=== PATIENT | female | born 1985 | race Caucasian/White ===

== ENCOUNTER 2016-12-14 06:49 | Emergency (ER) | payer OTHER ==
[2016-12-14 07:05] VITALS: BP 109/64; PULSE 70; TEMP 97.9; BMI 24.2
--- NOTE | 2016-12-14 07:24 | PDOC ---
History of Present Illness - General Chief Complaint: Pain Stated Complaint: PAIN/KIDNEY STONES Time Seen by Provider: 12/14/16 07:15 - History of Present Illness Initial Comments: 12/14/16 07:42 Ms. Flanagan is a 30 year old female with a significant past medical history of prior kidney stones who presents to the emergency department with a 1 week history of left flank pain radiating to her back. She says that she had spoken with her PCP (Isa) who sent her in yesterday for labs and proscribed antibiotics but that the pain was greater today so she came in for further care. The patient denies chest pain, shortness of breath, headache and dizziness. Denies fever, chills, nausea, vomit, diarrhea and constipation. Denies dysuria, frequency, urgency and hematuria. Allergies: NKDA Past surgical history: Denies Social history: Social EtOH PMD -Isa Past History - Past Medical History Allergies/Adverse Reactions: Allergies Allergy/AdvReac Type Severity Reaction Status Date / Time No Known Allergies Allergy Verified 12/14/16 07:02 Home Medications: Ambulatory Orders NK [No Known Home Medication] 12/14/16 Other medical history: Pt denies - Psycho/Social/Smoking Cessation Hx Suicidal Ideation: No Smoking History: Never smoked Information on smoking cessation initiated: No Hx Alcohol Use: No Drug/Substance Use Hx: No Substance Use Type: None Review of Systems - Review of Systems Comments:: 12/14/16 07:43 GENERAL/CONSTITUTIONAL: No fever or chills. No weakness. HEAD, EYES, EARS, NOSE AND THROAT: No change in vision. No ear pain or discharge. No sore throat. CARDIOVASCULAR: No chest pain or shortness of breath RESPIRATORY: No cough, wheezing, or hemoptysis. GASTROINTESTINAL: No nausea, vomiting, diarrhea or constipation. GENITOURINARY: +Left flank pain with recent cloudy urine. No dysuria, or frequency change. MUSCULOSKELETAL: No joint or muscle swelling or pain. No neck or back pain. SKIN: No rash NEUROLOGIC: No headache, vertigo, loss of consciousness, or change in strength/ sensation. ENDOCRINE: No increased thirst. No abnormal weight change HEMATOLOGIC/LYMPHATIC: No anemia, easy bleeding, or history of blood clots. ALLERGIC/IMMUNOLOGIC: No hives or skin allergy. *Physical Exam - Vital Signs Last Vital Signs Temp Pulse Resp BP Pulse Ox 97.9 F 70 20 109/64 100 12/14/16 07:02 12/14/16 07:02 12/14/16 07:02 12/14/16 07:02 12/14/16 07:02 - Physical Exam Comments: 12/14/16 07:43 GENERAL: Awake, alert, and fully oriented, in no acute distress HEAD: No signs of trauma, normocephalic, atraumatic EYES: PERRLA, EOMI, sclera anicteric, conjunctiva clear ENT: Auricles normal inspection, hearing grossly normal, nares patent, oropharynx clear without exudates. Moist mucosa NECK: Normal ROM, supple, no lymphadenopathy, JVD, or masses LUNGS: No distress, speaks full sentences, clear to auscultation bilaterally HEART: Regular rate and rhythm, normal S1 and S2, no murmurs, rubs or gallops, peripheral pulses normal and equal bilaterally. ABDOMEN: +Tender to palpation in LLQuadrant and midline. Soft, normoactive bowel sounds. No guarding, no rebound. No masses EXTREMITIES: Normal inspection, Normal range of motion, no edema. No clubbing or cyanosis. NEUROLOGICAL: Cranial nerves II through XII grossly intact. Normal speech, normal gait, no focal sensorimotor deficits SKIN: Warm, Dry, normal turgor, no rashes or lesions noted. ED Treatment Course - LABORATORY CBC & Chemistry Diagram: 12/14/16 08:14 12/14/16 08:14 Medical Decision Making - Medical Decision Making 12/14/16 07:46 Ms. Flanagan presents with a 1 week history of pain that she says is similar in character to her previous kidney stones. She presents as the pain was too severe for her to go to work. Ordered f/u UA, labs, and toradol for pain control. 12/14/16 10:38 US negative for stone or kidney pathology - UA positive for blood and leukocyte esterase. Suspect UTI is cause of pain. Spiral CT to confirm no other pathology , will d/c to home if negative. CT negative, read below. Will send home on previously prescribed ciprofloxacin. Also counceled patient on dietary changes for constipation. IMPRESSION: There is no evidence of hydroureteronephrosis, renal or ureteral stone, bilaterally. Empty urinary bladder limiting its evaluation. There is no evidence of small bowel obstruction. Moderate amount of fecal residue mainly in the distal sigmoid colon, rule out constipation Laboratory Results - last 24 hr 12/14/16 12/14/16 12/14/16 08:14 08:14 08:14 WBC 8.9 RBC 4.95 Hgb 8.5 L Hct 28.0 L MCV 56.5 L MCH 17.2 L MCHC 30.4 L RDW 21.4 H Plt Count 178 D MPV 9.0 Neutrophils % 74.5 Lymphocytes % 17.5 D Monocytes % 6.2 Eosinophils % 1.6 Basophils % 0.2 Sodium 137 Potassium 3.5 Chloride 104 Carbon Dioxide 27 Anion Gap 6 L BUN 18 Creatinine 0.7 Creat Clearance w eGFR > 60 Random Glucose 73 L Calcium 8.8 Total Bilirubin 0.4 D AST 9 L ALT 14 Alkaline Phosphatase 59 Total Protein 7.6 Albumin 3.7 Urine Color Straw Urine Appearance Clear Urine pH 5.0 Urine Protein Negative Urine Glucose (UA) Negative Urine Ketones Negative Urine Blood 1+ H Urine Nitrite Negative Urine Bilirubin Negative Urine Urobilinogen Negative Ur Leukocyte Esterase 2+ H Urine RBC 1 Urine WBC 6 Ur Epithelial Cells Rare Urine Bacteria Rare Urine Mucus Rare Urine HCG, Qual Negative 12/14/16 11:48 *DC/Admit/Observation/Transfer Diagnosis at time of Disposition: Urinary tract infection Qualifiers: Urinary tract infection type: site unspecified Hematuria presence: without hematuria Qualified Code(s): N39.0 - Urinary tract infection, site not specified - Discharge Dispostion Disposition: HOME Condition at time of disposition: Stable - Patient Instructions Printed Discharge Instructions: DI for Urinary Tract Infection (UTI), DI for Constipation Additional Instructions: Please return to ER if any increase in pain, fever, or other concerning symptoms. - Attestations Physician Attestion: 12/14/16 11:51 I, Dr. Kaleb Bey, attest that this document has been prepared under my direction and personally reviewed by me in its entirety. I further attest, that it accurately reflects all work, treatment, procedures and medical decision -making performed by me.
[2016-12-14] MEDS ORDERED: KETOROLAC TROMETHAMINE 30 MG/1 ML VIAL IVPUSH ONE (07:51)
--- NOTE | 2016-12-14 07:52 | PDOC ---
Attending Attestation - Resident Resident Name: Kaleb Bey - ED Attending Attestation I have performed the following: I have examined & evaluated the patient, The case was reviewed & discussed with the resident, I agree w/resident's findings & plan, Exceptions are as noted - HPI HPI: 12/14/16 09:55 30y F with no significant pmhx presents with several weeks of intermittent L sided flank pain associated with vomiting thi smorning w/o fver/chills. pt endorses mild dysuria. GENERAL: The patient is awake, alert, and fully oriented, Nontoxic - in no acute distress. HEAD: Normocephalic, atraumatic. EYES: extraocular movements intact, sclera anicteric, conjunctiva clear. ENT: Normal voice, Moist mucous membranes. NECK: Normal range of motion, supple LUNGS: Breath sounds equal, clear to auscultation bilaterally. No wheezes, no rhonchi, no rales. HEART: Regular rate and rhythm, normal S1 and S2 without murmur, rub or gallop. ABDOMEN: +mild L sided CVA tenderness EXTREMITIES: Normal range of motion, no edema. No clubbing or cyanosis. No cords, erythema, or tenderness. NEUROLOGICAL: No facial assymetry, Normal speech, PSYCH: Normal mood, normal affect. SKIN: Warm, Dry, normal turgor, suspect uti vs kidney stones UA shows +blood, +2LE will obtain CT to r/o infected stone [t on levaquin from PMD filled yesterday
[2016-12-14] MEDS ORDERED: KETOROLAC TROMETHAMINE 30 MG/1 ML VIAL ONE (07:54)
[2016-12-14 08:23] LABS: BASOPHIL 0.2 % (0-2.0); EOSINOPHIL 1.6 % (0-4.5); MCHC 30.4 g/dl (32.0-36.0); MEAN CELL VOLUME 56.5 fl (80-96); NEUTROPHILS 74.5 % (42.8-82.8); PLATELET COUNT 178 K/MM3 (134-434); RDW 21.4 % (11.6-15.6); WHITE BLOOD COUNT 8.9 K/mm3 (4.0-10.0)
[2016-12-14 08:25] LABS: MCH 17.2 pg (25.7-33.7)
[2016-12-14 08:29] LABS: URINE APPEARANCE CLEAR; URINE BILIRUBIN NEGATIVE (NEGATIVE); URINE BLOOD 1+ (NEGATIVE); URINE COLOR STRAW; URINE GLUCOSE (UA) NEGATIVE (NEGATIVE); URINE KETONE NEGATIVE (NEGATIVE); URINE NITRITE NEGATIVE (NEGATIVE); URINE PROTEIN NEGATIVE (NEGATIVE); URINE UROBILINOGEN NEGATIVE mg/dL (0.2-1.0)
[2016-12-14 08:32] LABS: URINE LEUK ESTERASE 2+ (NEGATIVE)
[2016-12-14 08:41] LABS: URINE BACTERIA RARE /hpf (NONE SEEN); URINE MUCUS RARE; URINE RBC 1 /hpf (0-3); URINE WBC 6 /hpf (3-5)
[2016-12-14 08:56] LABS: ALBUMIN 3.7 g/dl (3.4-5.0); ANION GAP 6 (8-16); BILIRUBIN,TOTAL 0.4 mg/dL (0.2-1.0); CALCIUM 8.8 mg/dL (8.5-10.1); CO2 27 mmol/L (21-32); GLUCOSE,RANDOM 73 mg/dL (74-106); SGOT/AST 9 U/L (15-37); SGPT/ALT 14 U/L (12-78); TOT PROT 7.6 g/dl (6.4-8.2)
[2016-12-14 08:58] LABS: ALK PHOS 59 U/L (45-117); CREATININE 0.7 mg/dL (0.55-1.02)
== END 2016-12-14 11:59 | disposition home or self-care (01) ==
LOC: JER 06:49
PROC: 3E033NZ Introduction of Analgesics, Hypnotics, Sedatives into Peripheral Vein, Percutaneous Approach (ICD-10-PCS; principal; 2016-12-14)
DX: N39.0 Urinary tract infection, site not specified (principal); Z87.442 Personal history of urinary calculi
CPT/HCPCS: 36415; 74176; 76775-TC; 80053; 81003; 81015; 84703; 85025; 96374; 99282-25

== ENCOUNTER 2017-01-23 09:17 | Day surgery (SDC) | payer OTHER ==
[2017-01-21 11:51] VITALS: BMI 21.6
[2017-01-23] MEDS ORDERED: ACETAMINOPHEN 325 MG TABLET (FP) PO PRN (10:52)
[2017-01-23] MEDS ORDERED: IBUPROFEN 800 MG/8 ML IJ IVPB PRN (10:52)
--- NOTE | 2017-01-23 10:52 | HP ---
History & Physical Update - History History: No Change - Physical Physical: No Change - Assessment Assessment: No Change - Plan Plan: No Change (AUB 2/2 polyps, for hysteroscopy, D&C, polypectomy)
[2017-01-23] MEDS ORDERED: LACTATED RINGERS SOLUTION 1,000 ML IV SCH (11:00)
[2017-01-23] MEDS ORDERED: MIDAZOLAM HCL 2 MG/2 ML SINGLE DOSE VIAL ONE ×2 (11:41)
[2017-01-23] MEDS ORDERED: ONDANSETRON 4 MG/2 ML VIAL IVPUSH PRN (11:43)
[2017-01-23] MEDS ORDERED: ACETAMINOPHEN 325 MG TABLET (FP) ONE (14:18)
[2017-01-23] MEDS ORDERED: ACETAMINOPHEN 325 MG TABLET (FP) PO ONE (14:25)
[2017-01-23 14:57] VITALS: TEMP 98.9
[2017-01-23 15:36] VITALS: BP 111/64; PULSE 73
[2017-01-24] MEDS ORDERED: MULTIVITAMINS (DAILY MVI) TABLET (FP) PO SCH (10:00)
--- NOTE | 2017-01-24 11:22 | PATH ---
Surgical Pathology Report Patient Name: NARA LOPEZ [facility]. Rec. #: [id number] /Age/Gender: 1985 (Age: 31) / F Account: [id number] Location: [facility] SURGICAL Taken: 01/23/2017 Received: 01/23/2017 Reported: 01/24/2017 Physicians: Radha Daugherty M.D. Specimen(s) Received ENDOMETRIAL CURETTINGS Clinical History Endometrial polyp Final Diagnosis ENDOMETRIUM, CURETTING: ENDOMETRIUM WITH STROMAL AND GLANDULAR BREAKDOWN, ALONG WITH PORTIONS OF BENIGN ENDOMETRIAL POLYP. BENIGN CERVICAL TISSUE PRESENT. NO ENDOMETRIAL HYPERPLASIA OR CARCINOMA IDENTIFIED. Electronically Signed Gary Keller M.D. Gross Description Received in formalin labeled "endometrial curettings," is a 2.3 x 2.2 x 0.3 cm aggregate of gan red soft tissue fragments. The formalin is filtered and the specimen is entirely submitted in one cassette. /01/23/201701/23/2017
--- NOTE | 2017-01-30 10:28 | OP ---
Operative Note - Note: Operative Date: 01/23/17 Pre-Operative Diagnosis: AUB, endometrial polyp Operation: hysteroscopy resection if endometrial polyp Implants: polypoid endometrial tissue anteriorly Surgeon: Radha Daugherty Anesthesiologist/CHUTE TAPPER: Brayden Evans Anesthesia: MAC Estimated Blood Loss (mls): 10 Operative Report Dictated: Yes
--- NOTE | 2017-01-30 12:54 | OP ---
DATE OF OPERATION: 01/23/2017 PREOPERATIVE DIAGNOSIS: Abnormal uterine bleeding and endometrial polyp. POSTOPERATIVE DIAGNOSIS: Abnormal uterine bleeding and endometrial polyp. PROCEDURE: hysteroscopy, dilation and curettage, and polypectomy. SURGEON: Radha Daugherty DO PLUGGING MACHINE OPERATOR: None. ANESTHESIA: LMA by Brayden Evans ESTIMATED BLOOD LOSS: 10 mL. SPECIMENS: Included endometrial curettings and endometrial polyp. COMPLICATIONS: None. Instrument count correct at the end of the case. DISPOSITION: Stable to PACU. BRIEF HISTORY AND PROCEDURE: The patient is a 31-year-old female who was been seen in the office with complaints of abnormal uterine bleeding. Upon ultrasound findings was noted to have an endometrial polyp. The patient was consented on her options and elected to undergo a hysteroscopy, dilation and curettage, and polypectomy. DESCRIPTION OF PROCEDURE: The patient was admitted to [facility] on January 23, 2017. Consents for the procedure, which were signed in the office were reconfirmed. The patient was then taken back to the operating room and placed in the dorsal lithotomy position and given anesthesia by LMA. She was then prepped and draped in the usual sterile fashion. A hard time-out was performed. A speculum was placed inside the vagina. The cervix was grasped with a tenaculum. The cervix was dilated to accommodate a diagnostic hysteroscope, which was advanced to the fundus. Dense polypoid tissue was noted on the anterior and posterior portions of the uterus as well as the lower uterine segment. No discrete polyps or fibroids were appreciated. Next, a sharp curette and suction dilation and curettage was performed to remove the contents of the endometrial cavity. Upon re-examination inside the uterus, no uterine perforation or trauma was appreciated. All of the polypoid tissue appeared to have been removed. All instruments were removed from the vagina cavity. Counts were reported to be correct. Tenaculum was released from the anterior lip of the cervix. The tenaculum sites were noted to be hemostatic. The patient was awoken from anesthesia and tolerated the procedure in stable condition in the PACU after procedure. RADHA DAUGHERTY DO /[id number]
== END 2017-01-23 15:39 | disposition home or self-care (01) ==
LOC: JASU-SURG 09:17
PROVIDERS: ATTEND Obstetrics & Gynecology
PROC: 0UB98ZX Excision of Uterus, Via Natural or Artificial Opening Endoscopic, Diagnostic (ICD-10-PCS; principal; 2017-01-23 11:00)
PROC: 0UDB8ZX Extraction of Endometrium, Via Natural or Artificial Opening Endoscopic, Diagnostic (ICD-10-PCS; 2017-01-23 11:00)
DX: N93.9 Abnormal uterine and vaginal bleeding, unspecified (principal); N84.0 Polyp of corpus uteri
CPT/HCPCS: 84703; 88305-TC; 94760

== ENCOUNTER 2017-10-22 10:00 | Inpatient (IN) | payer OTHER ==
[2017-10-27] MEDS ORDERED: CITRIC ACID/SODIUM CITRATE 30 ML UNIT-DOSE CUP PO ONE (07:20)
[2017-10-27] MEDS ORDERED: ELECTROLYTE-148 SOLN 1,000 ML IV ONE (07:20)
[2017-10-27] MEDS ORDERED: ONDANSETRON 4 MG/2 ML VIAL IVPUSH PRN (07:54)
[2017-10-27] MEDS ORDERED: ELECTROLYTE-148 SOLN 1,000 ML IV SCH (08:20)
[2017-10-27 08:21] VITALS: BMI 29.6
[2017-10-27] MEDS ORDERED: TUBERCULIN PPD 5 TU/0.1ML SYRINGE (IN PATIENT USE ONLY) ID ONE (09:00)
--- NOTE | 2017-10-27 10:24 | HP ---
Past Medical History - Admission Chief Complaint: Here for repeat delivery History Source: Patient, Medical Record Limitations to Obtaining History: No Limitations - Past Medical History Gastrointestinal: Yes: Constipation Reproductive: No: Fibroids, PID ...: 2 ...Para: 1 ...Term: 1 ...: 0 ...Spon : 0 ...Induced : 0 ...Multiple Gestation: 0 ...LMP: 01/20/17 ... Weeks Gestation by Dates: 40.0 ...EDC by Dates: 10/27/17 ...EDC by Sono: 11/03/17 Infectious Disease: No: HIV, MRSA, STD's Psych: No: Bipolar, Depression - Past Surgical History Past Surgical History: Yes: None, Hx Myomectomy: No Hx Transabdominal Cerclage: No - Smoking History Smoking history: Never smoked Have you smoked in the past 12 months: No - Alcohol/Substance Use Hx Alcohol Use: No - Social History Usual Living Arrangement: Yes: With Spouse ADL: Independent History of Recent Travel: No Home Medications - Allergies Allergies/Adverse Reactions: Allergies Allergy/AdvReac Type Severity Reaction Status Date / Time tramadol AdvReac Severe Vomiting Verified 10/27/17 08:26 - Home Medications Home Medications: Ambulatory Orders Metoclopramide HCl [Reglan] 1 tab PO DAILY 10/27/17 Vitamins (Sjr) - 1 tab PO DAILY 10/27/17 Review of Systems - Review of Systems Constitutional: reports: No Symptoms Eyes: reports: No Symptoms HENT: reports: No Symptoms Neck: reports: No Symptoms Cardiovascular: reports: No Symptoms Respiratory: reports: No Symptoms Gastrointestinal: reports: No Symptoms Genitourinary: reports: No Symptoms Breasts: reports: No Symptoms Reported Musculoskeletal: reports: No Symptoms Integumentary: reports: No Symptoms Neurological: reports: No Symptoms Endocrine: reports: No Symptoms Hematology/Lymphatic: reports: No Symptoms Psychiatric: reports: No Symptoms Physical Exam - Maternity Vital Signs: Vital Signs Temperature 98.2 F 10/27/17 07:20 Pulse Rate 79 10/27/17 07:20 Respiratory Rate 17 10/27/17 07:20 Blood Pressure 119/77 10/27/17 07:20 O2 Sat by Pulse Oximetry (%) Constitutional: Yes: Well Nourished, No Distress, Calm Eyes: Yes: Conjunctiva Clear, EOM Intact HENT: Yes: Atraumatic, Normocephalic Neck: Yes: WNL Cardiovascular: Yes: WNL Lungs: Clear to auscultation - Abdominal Exam/OB Fundal Height: 40 Number of Fetuses: Single Presentation: Vertex Monitor Mode: External Category: I Accelerations: Uniform Decelerations: None - Vaginal Exam/OB Vaginal Bleediing: No Hemorrhage Risk Assessment - Risk Factors Medium Risk Factors: Yes: Prior , uterine surgery,or multiple laparotomies High Risk Factors: Yes: None Risk Score: 1 Risk Level: Medium Risk Problem List - Problems (1) History of delivery Code(s): Z98.891 - HISTORY OF UTERINE SCAR FROM PREVIOUS SURGERY Assessment/Plan 31 y/o with SIUP at 39 weeks by dates for scheduled repeat c section AFVSS FHTS cat 1 for repeat c section, NPO, [facility] anesthesia and nursery aware
[2017-10-27] MEDS ORDERED: OXYTOCIN 20 UNITS in 0.9% NS 20 UNIT/1,000 ML INFUS.BAG IV ONE ×2 (10:59→14:44)
[2017-10-27] MEDS ORDERED: morphine SULFATE/Preservative Free 0.5 MG/ML (1cc Syringe) ONE (12:13)
[2017-10-27] MEDS ORDERED: ceFAZolin SODIUM 1 GM VIAL ONE (12:13)
[2017-10-27] MEDS ORDERED: BUPIVACAINE 0.75% IN DEXTROSE/PF 2ML AMPULE NR ONE (12:16)
[2017-10-27] MEDS ORDERED: OXYTOCIN 10 UNITS/ML VIAL ONE (13:01)
[2017-10-27] MEDS ORDERED: oxyCODONE HCL 5 MG TABLET PO PRN (13:20)
--- NOTE | 2017-10-27 13:20 | OP ---
Operative Note - Note: Operative Date: 10/27/17 Pre-Operative Diagnosis: prior delivery, declined TOLAC Operation: repeat low transverse delivery Post-Operative Diagnosis: Same as Pre-op Surgeon: Radha Daugherty [employer] Serviceperson: Junito Patel Anesthesiologist/INTEGRATION CONSULTANT: Yoandy Engle Anesthesia: Spinal Specimens Removed: placenta Estimated Blood Loss (mls): 600 Operative Report Dictated: Yes
[2017-10-27] MEDS ORDERED: IBUPROFEN 800 MG/8 ML IJ IVPB ONE (13:38)
[2017-10-27 13:40] LABS: ARTERIAL BLOOD GAS BASE EXCESS -1.4 meq/l (-2-2); ARTERIAL BLOOD GAS PCO2 51.7 mmHg (35-45); ARTERIAL BLOOD GAS pH 7.31 (7.35-7.45)
[2017-10-27 13:48] LABS: ARTERIAL BLOOD GAS PO2 17.8 mmHg (80-100)
[2017-10-27 13:49] LABS: VENOUS PC02 43.6 mmHg (38-52); VENOUS PH 7.36 (7.32-7.42); VENOUS PO2 36.2 mmHg (28-48)
[2017-10-27] MEDS: IBUPROFEN 800 MG/8 ML IJ IVPB PRN (13:50)
[2017-10-27] MEDS ORDERED: METHYLERGONOVINE MALEATE 0.2 MG/1 ML AMP IM PRN (13:53)
[2017-10-27] MEDS: OXYTOCIN 20 UNITS in 0.9% NS 20 UNIT/1,000 ML INFUS.BAG IV SCH (14:45)
--- NOTE | 2017-10-27 19:24 | OP ---
DATE OF OPERATION: 10/27/2017 PREOPERATIVE DIAGNOSIS: Single intrauterine at 39 weeks, prior delivery, declined trial of labor after delivery. POSTOPERATIVE DIAGNOSIS: Single intrauterine at 39 weeks, prior delivery, declined trial of labor after delivery. PROCEDURE: Repeat low transverse section. SURGEON: Radha Daugherty DO DIRECTOR CARDIOLOGY: HERBIE Britton ANESTHESIA: Spinal by Yoandy Engle MD. ESTIMATED BLOOD LOSS: 600 mL COMPLICATIONS: None. DISPOSITION: Stable to PACU. COUNTS: Sponge, needle, and instrument count correct. SPECIMENS REMOVED: Placenta. BRIEF HISTORY AND PROCEDURE: Patient is a 31-year-old, G2, P1 female with a history of a prior delivery in 2011, who presents today for a scheduled repeat delivery. The patient was admitted to [facility] on October 27, 2017. At which point, consents for the procedure were signed. Patient was taken back to the operating room where she was given spinal anesthesia and placed in the dorsal supine position. She was prepped and draped in the usual sterile fashion, and a hard timeout was performed. A Pfannenstiel skin incision was created in the skin with a scalpel and carried to the underlying layer of rectus fascia with the scalpel as well as with the Bovie. The fascia was incised on either side of the midline, and the fascial incision was carried in a superolateral direction sharply. The fascia was tented upward and dissected off the underlying layer of rectus muscle sharply. The musculature was identified. Midline was noted, and the muscles laterally. The peritoneum was then incised, and a bladder blade was inserted. The peritoneum was carefully dissected to allow for adequate room for delivery. A transverse incision was created in the lower uterine segment, which was extended in a superolateral direction bluntly. Infant was then delivered from the left occiput transverse position without difficulty. Posterior and anterior shoulders delivered with ease, along with the remainder of the . The was then taken over to the warmer to be assessed by the neonatology staff, who was present for the entire delivery. The placenta was then delivered with a 3-vessel cord and infant. The uterus was exteriorized from the abdomen, inspected, and cleared of all amniotic membranes and debris with a dry lap sponge. The hysterotomy was reapproximated in a double-layer closure, first using 1 Vicryl in a running locked fashion, second layer using 0 Biosyn in a running locked fashion. Excellent hemostasis was achieved. The posterior cul-de-sac was suctioned. Tubes and ovaries were noted to be normal. The uterus was placed back into the abdomen. Bilateral gutters were inspected and cleared of all debris. The hysterotomy was noted to have 2 areas of bleeding, and 2 figure-of-8 sutures were placed with 0 Biosyn to achieve hemostasis. Next, the peritoneum was reapproximated with a 2-0 chromic in a running fashion. The musculature was reapproximated in 2 interrupted sutures. The fascia was reapproximated using 1 Vicryl in a running fashion. Subcutaneous tissue was irrigated and reapproximated using 1 Vicryl in a running fashion, and a subcuticular stitch was placed into the skin, along with Steri-Strips on top. The patient tolerated the procedure well, recovering in stable condition in the PACU at the time of this dictation. Sponge, needle, and instrument count was reported to be correct. RADHA DAUGHERTY DO /[id number]
[2017-10-27] MEDS ORDERED: SENNOSIDES/DOCUSATE COMBO (SENNA PLUS) TABLET (UD) PO PRN (22:00)
[2017-10-28] MEDS: IBUPROFEN 800 MG/8 ML IJ IVPB PRN (06:07)
[2017-10-28 08:28] LABS: BASO % 0.2 % (0-2.0); EOS % 0.6 % (0-4.5); HEMATOCRIT 32.7 % (32.4-45.2); HEMOGLOBIN 10.4 GM/dL (10.7-15.3); LYMPH % 9.4 % (8-40); MCH 21.3 pg (25.7-33.7); MCHC 31.8 g/dl (32.0-36.0); MEAN PLT VOLUME 9.6 fl (7.5-11.1); MONO % 5.5 % (3.8-10.2); NEUT % 84.3 % (42.8-82.8); PLATELET COUNT 170 K/MM3 (134-434); RBC 4.87 M/mm3 (3.60-5.2); RDW 17.4 % (11.6-15.6); WHITE BLOOD COUNT 15.3 K/mm3 (4.0-10.0)
--- NOTE | 2017-10-28 10:37 | PN ---
Post Progress Note - Subjective Subjective: Pt seen/evaluated and doing well. Pain controlled. Tolerating diet (clears), passing some flatus. Kaur catheter removed, pt admits to voiding. Ambulating. VB minimal per nursing staff. Type of Delivery: Repeat C/S Vital Signs: Vital Signs Temperature 98.0 F 10/28/17 09:30 Pulse Rate 74 10/28/17 09:30 Respiratory Rate 20 10/28/17 09:30 Blood Pressure 120/72 10/28/17 09:30 O2 Sat by Pulse Oximetry (%) 100 10/27/17 14:25 Breast Exam: Yes: Soft Uterus: Yes: Fundus Firm, Fundus below umbilicus Incision: Yes: Dressing dry and intact Abdomen/GI: Yes: Abdomen soft, Tender (appropriate post surgical tenderness), Passing flatus, Tolerating PO. No: Abdominal Distention Lochia, amount: Small Perineum: Yes: Intact Activity: Ambulating - Labs Labs: CBC WBC 15.3 K/mm3 (4.0-10.0) H D 10/28/17 08:02 RBC 4.87 M/mm3 (3.60-5.2) 10/28/17 08:02 Hgb 10.4 GM/dL (10.7-15.3) L 10/28/17 08:02 Hct 32.7 % (32.4-45.2) 10/28/17 08:02 MCV 67.0 fl (80-96) L 10/28/17 08:02 MCH 21.3 pg (25.7-33.7) L 10/28/17 08:02 MCHC 31.8 g/dl (32.0-36.0) L 10/28/17 08:02 RDW 17.4 % (11.6-15.6) H 10/28/17 08:02 Plt Count 170 K/MM3 (134-434) 10/28/17 08:02 MPV 9.6 fl (7.5-11.1) 10/28/17 08:02 Absolute Neuts (auto) 12.9 # 10/28/17 08:02 Neutrophils % 84.3 % (42.8-82.8) H 10/28/17 08:02 Lymphocytes % 9.4 % (8-40) D 10/28/17 08:02 Monocytes % 5.5 % (3.8-10.2) 10/28/17 08:02 Eosinophils % 0.6 % (0-4.5) 10/28/17 08:02 Basophils % 0.2 % (0-2.0) 10/28/17 08:02 Nucleated RBC % 0 % (0-0) 10/28/17 08:02 Problem List - Problems (1) History of delivery Code(s): Z98.891 - HISTORY OF UTERINE SCAR FROM PREVIOUS SURGERY (2) delivery delivered Code(s): O82 - ENCOUNTER FOR DELIVERY WITHOUT INDICATION Assessment/Plan 31 y/o POD #1 s/p repeat delivery AFVSS HGb 10.4 regular diet today PO pain meds encourage ambulation routine care
[2017-10-28] MEDS: SIMETHICONE 80 MG TAB.CHEW (FP) PO PRN ×2 (10:59→17:20)
[2017-10-28] MEDS: oxyCODONE HCL 5 MG TABLET PO PRN ×2 (10:59→17:20)
[2017-10-28 11:13] LABS: ANISOCYTOSIS 2+; MACROCYTOSIS 0; PLATELET ESTIMATE NORMAL
--- NOTE | 2017-10-28 11:53 | PN ---
Progress Note (short form) - Note Progress Note: Anesthesia postop note 31y/o F s/p spinal anesthesia/ duramorph for secton POD#1, vss, aaox3, ambulating, pain fairly well controlled. No anesthesia complications.
[2017-10-28] MEDS ORDERED: BISACODYL 10 MG SUPP.RECT RC PRN (13:20)
[2017-10-28] MEDS: OXYTOCIN 20 UNITS in 0.9% NS 20 UNIT/1,000 ML INFUS.BAG IV SCH (14:26)
[2017-10-28] MEDS: IBUPROFEN 600 MG TABLET (FP) PO PRN ×2 (14:33→23:04)
[2017-10-29] MEDS: IBUPROFEN 600 MG TABLET (FP) PO PRN ×3 (09:01→22:30)
[2017-10-29] MEDS: SIMETHICONE 80 MG TAB.CHEW (FP) PO PRN ×3 (09:01→19:55)
[2017-10-29] MEDS ORDERED: DOCUSATE SODIUM 100 MG CAPSULE (FP) PO PRN (13:08)
--- NOTE | 2017-10-29 13:08 | PN ---
Post Progress Note - Subjective Subjective: Pt seen/evaluated and doing well. Denies pain. Ambulating, voiding. Complains of gas pain and constipation only. Tolerating diet, VB minimal. Type of Delivery: Repeat C/S Vital Signs: Vital Signs Temperature 98.2 F 10/29/17 10:00 Pulse Rate 72 10/29/17 10:00 Respiratory Rate 20 10/29/17 10:00 Blood Pressure 118/72 10/29/17 10:00 O2 Sat by Pulse Oximetry (%) 100 10/27/17 14:25 Breast Exam: Yes: Soft Uterus: Yes: Fundus below umbilicus Abdomen/GI: Yes: Abdomen soft, Tender, Passing flatus. No: Abdominal Distention Lochia: Yes: Rubra Lochia, amount: Small Extremities: Yes: Calves non-tender Perineum: Yes: Intact Activity: Ambulating - Labs Labs: CBC WBC 15.3 K/mm3 (4.0-10.0) H D 10/28/17 08:02 RBC 4.87 M/mm3 (3.60-5.2) 10/28/17 08:02 Hgb 10.4 GM/dL (10.7-15.3) L 10/28/17 08:02 Hct 32.7 % (32.4-45.2) 10/28/17 08:02 MCV 67.0 fl (80-96) L 10/28/17 08:02 MCH 21.3 pg (25.7-33.7) L 10/28/17 08:02 MCHC 31.8 g/dl (32.0-36.0) L 10/28/17 08:02 RDW 17.4 % (11.6-15.6) H 10/28/17 08:02 Plt Count 170 K/MM3 (134-434) 10/28/17 08:02 MPV 9.6 fl (7.5-11.1) 10/28/17 08:02 Absolute Neuts (auto) 12.9 # 10/28/17 08:02 Neutrophils % 84.3 % (42.8-82.8) H 10/28/17 08:02 Lymphocytes % 9.4 % (8-40) D 10/28/17 08:02 Monocytes % 5.5 % (3.8-10.2) 10/28/17 08:02 Eosinophils % 0.6 % (0-4.5) 10/28/17 08:02 Basophils % 0.2 % (0-2.0) 10/28/17 08:02 Nucleated RBC % 0 % (0-0) 10/28/17 08:02 Hypochromia 1+ 10/28/17 08:02 Platelet Estimate Normal 10/28/17 08:02 Polychromasia 1+ 10/28/17 08:02 Poikilocytosis 1+ 10/28/17 08:02 Anisocytosis 2+ 10/28/17 08:02 Microcytosis 2+ 10/28/17 08:02 Macrocytosis 0 10/28/17 08:02 Problem List - Problems (1) History of delivery Code(s): Z98.891 - HISTORY OF UTERINE SCAR FROM PREVIOUS SURGERY (2) delivery delivered Code(s): O82 - ENCOUNTER FOR DELIVERY WITHOUT INDICATION Assessment/Plan 31 y/o POD #2 s/p repeat delivery AFVSS HGb 10.4 regular diet today PO pain meds encourage ambulation will order simethicone and colace routine care
[2017-10-30] MEDS: SIMETHICONE 80 MG TAB.CHEW (FP) PO PRN (06:04)
[2017-10-30] MEDS: IBUPROFEN 600 MG TABLET (FP) PO PRN (06:04)
--- NOTE | 2017-10-30 08:45 | DS ---
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 Hospital Course: Pt admitted in 10/27/17 for scheduled repeat delivery. Pt underwent uncomplicated procedure on that date. She had a normal post op/post recovery and was discharged home in stable condition on post op day 3. Condition: Good - Instructions Diet, Activity, Other Instructions: Physical activity Resume your normal everyday activity as tolerated no heavy lifting or exercise until seen by your surgeon. You may walk unlimited esau of and climb stairs. You may resume driving the car when you feel safe and comfortable behind the wheel. No sexual activity as instructed. Wound care If you have a bandage, leave it on, and keep dry for 48-72 hours. After that time discard the outer bandage. If they are tapes on the skin under the out of bandage leave them in place. They will peel off in the next 7 to 10 days. Do Not Peel them off. You may shower the day after surgery. If there are tapes present on the skin, you may shower over them. Diet There are no dietary restrictions. Eat healthy, high-fiber foods. Drink 6 to 8 glasses of liquid each day. This will assist in keeping your bowels are regular. Pain management You may take Tylenol or acetaminophen or Ibuprofen (for example, Motrin, Advil etc.) from my pain prescription medication is ordered should be taken as prescribed for moderate to severe pain. Call MD for any of the following: Severe pain not relieved by medication Fever of 101 or higher Excessive bleeding or drainage on dressing Inability to urinate Referrals: Radha Daugherty DO [Staff Physician] - 1 Week Disposition: HOME - Home Medications Comprehensive Discharge Medication List: Ambulatory Orders Metoclopramide HCl [Reglan] 1 tab PO DAILY 10/27/17 Vitamins (Sjr) - 1 tab PO DAILY 10/27/17
[2017-10-30 08:46] LABS: BASO % 0.3 % (0-2.0); HEMATOCRIT 30.3 % (32.4-45.2); HEMOGLOBIN 9.6 GM/dL (10.7-15.3); MCH 21.4 pg (25.7-33.7); MCHC 31.5 g/dl (32.0-36.0); MEAN CELL VOLUME 67.8 fl (80-96); MEAN PLT VOLUME 9.2 fl (7.5-11.1); MONO % 4.6 % (3.8-10.2); NEUT % 75.1 % (42.8-82.8); PLATELET COUNT 176 K/MM3 (134-434); RBC 4.47 M/mm3 (3.60-5.2); RDW 17.3 % (11.6-15.6); WHITE BLOOD COUNT 9.7 K/mm3 (4.0-10.0)
[2017-10-30] MEDS ORDERED: PRENATAL VITAMINS W/ FOLIC ACID TABLET (FP) PO SCH (10:00)
[2017-10-30 10:44] VITALS: BP 100/59; PULSE 71; TEMP 98.3
--- NOTE | 2017-10-30 12:05 | PATH ---
Surgical Pathology Report Patient Name: NARA LOPEZ [facility]. Rec. #: [id number] /Age/Gender: 1985 (Age: 31) / F Account: [id number] Location: [facility] OBS/PATIENT LIAISON Taken: 10/27/2017 Received: 10/28/2017 Reported: 10/30/2017 Physicians: Radha Daugherty M.D. Specimen(s) Received PLACENTA Clinical History History of IUGR, previous 2011, with CHD Final Diagnosis PLACENTA: THIRD TRIMESTER PLACENTA. TRIVASCULAR CORD. MEMBRANES WITH NO DIAGNOSTIC ABNORMALITIES. Electronically Signed Sandhya Ramirez M.D. Gross Description The specimen is received fresh labeled placenta and is a 305 gram, 15.0 x 11.0 x 2.8 cm. placenta with attached membranes and umbilical cord. The attached membranes are gan, translucent with focal opacities and insert marginally. The umbilical cord measures 8 cm. in length and averages 1.1 cm. in diameter. The cord displays velamentous insertion. No true knots or strictures are identified. Cut surface of the umbilical cord reveals 3 vessels. The surface is valadez blue with moderate fibrin deposition and appropriate caliber vessels. The maternal surface is red-brown with focal defects. Sectioning reveals red-brown, spongy parenchyma. No lesions are identified. Lending Consultant sections are submitted in three cassettes as follows: 1- membrane rolls and umbilical cord; 2-3- full thickness sections of placenta. /10/29/2017 saudi10/29/2017
== END 2017-10-30 13:00 | disposition home or self-care (01) | DRG 540 ==
LOC: JLDR 10-27 07:20 → J3W 10-27 15:03
PROVIDERS: ADMIT Obstetrics & Gynecology; ATTEND Obstetrics & Gynecology
PROC: 10D00Z1 Extraction of Products of Conception, Low, Open Approach (ICD-10-PCS; principal; 2017-10-27)
DX: O34.211 Maternal care for low transverse scar from previous cesarean delivery (principal); O48.0 Post-term pregnancy; Z3A.40 40 weeks gestation of pregnancy; Z37.0 Single live birth
CPT/HCPCS: 36415; 36600; 82803; 85025; 88307-TC

== ENCOUNTER 2021-01-27 02:49 | Emergency (ER) | payer OTHER ==
[2021-01-27 03:30] VITALS: TEMP 98; BMI 25.0
[2021-01-27 05:50] LABS: BASO % 0.4 % (0-2.0); EOS % 1.1 % (0-4.5); HEMATOCRIT 32.7 % (32.4-45.2); HEMOGLOBIN 10.4 GM/dL (10.7-15.3); LYMPH % 21.7 % (8-40); MCH 20.4 pg (25.7-33.7); MCHC 31.8 g/dl (32.0-36.0); MEAN CELL VOLUME 64.2 fl (80-96); MEAN PLT VOLUME 9.7 fl (7.5-11.1); MONO % 5.4 % (3.8-10.2); NEUT % 71.4 % (42.8-82.8); PLATELET COUNT 278 10^3/uL (134-434); RBC 5.08 M/mm3 (3.60-5.2); RDW 16.9 % (11.6-15.6); WHITE BLOOD COUNT 8.3 K/mm3 (4.0-10.0)
[2021-01-27 06:09] LABS: CHLORIDE 106 mmol/L (98-107); SODIUM 139 mmol/L (136-145)
[2021-01-27] MEDS ORDERED: LIDOCAINE 5% TOPICAL PATCH TP ONE (06:10)
[2021-01-27 06:12] LABS: ANION GAP 7 MMOL/L (8-16); BLOOD UREA NITROGEN 15.1 mg/dL (7-18); CALCIUM 8.7 mg/dL (8.5-10.1); CO2 25 mmol/L (21-32); GLUCOSE,RANDOM 82 mg/dL (74-106)
[2021-01-27 06:15] LABS: CREATININE 0.7 mg/dL (0.55-1.3); SGOT/AST 9 U/L (15-37); SGPT/ALT 13 U/L (13-61)
[2021-01-27 06:16] LABS: BILIRUBIN,TOTAL 0.2 mg/dL (0.2-1)
[2021-01-27 06:18] LABS: ALK PHOS 71 U/L (45-117)
[2021-01-27] MEDS ORDERED: LIDOCAINE 5% TOPICAL PATCH ONE (06:21)
[2021-01-27 06:36] VITALS: BP 118/76; PULSE 76
[2021-01-27 09:08] LABS: ANISOCYTOSIS 2+; MACROCYTOSIS 0; OVALOCYTE 1+; PLATELET ESTIMATE NORMAL
[2021-01-27] MEDS ORDERED: LIDOCAINE PATCH REMOVAL MC SCH (22:00)
== END 2021-01-27 06:37 | disposition home or self-care (01) ==
LOC: JER 02:49
DX: R06.02 Shortness of breath (principal); R07.9 Chest pain, unspecified
CPT/HCPCS: 36415; 71045-TC-FY; 80053; 82550; 84484; 84703; 85025; 93005; 93010; 99283-25; C9803; U0003; U0005